=== PATIENT | male | born 1965 | race Caucasian/White ===

== ENCOUNTER 2017-12-29 18:06 | Emergency (ER) | payer MEDICARE, OTHER ==
[~2017-12-29] VITALS: Ht 172.7 cm; Wt 77.1 kg
[~2017-12-29 18:06] MED LIST: LEVAQUIN500 MG PO; LORTAB 7.5-5001 EACH PO; PLAVIX75 MG PO; PRILOSEC20 MG
--- OUTSIDE RECORDS SUMMARY | 2017-12-29 18:09 | XMS REPORT ---
Author Author [facility] Address Unknown Phone Unavailable Care Team Providers Care Institutional Cook Name Role Phone Unavailable Unavailable Problems This patient has no known problems. Allergies, Adverse Reactions, Alerts This patient has no known allergies or adverse reactions. Medications This patient has no known medications. Encounters Start Date/Time End Date/Time Encounter Type Admission Type Attending [facility] Facility Care Department Encounter ID [id number] 00:00:00 2017-06-19 00:00:00 Outpatient [facility] [id number]
[2017-12-29 19:47] VITALS: BP 138/78
== END 2017-12-29 19:48 | disposition home or self-care (01) ==
LOC: ER 18:06
DX: L04.0 Acute lymphadenitis of face, head and neck (principal); H92.02 Otalgia, left ear
CPT/HCPCS: 99282

== ENCOUNTER 2021-05-14 12:05 | Emergency (ER) | payer OTHER ==
[~2021-05-14] VITALS: Ht 172.7 cm; Wt 77.1 kg
[2021-05-14] MEDS ORDERED: ONDANSETRON HCL INJ 2MG/ML 2ML 2 MG/ML VIAL IV STA (12:21)
[2021-05-14] MEDS ORDERED: SODIUM CHLORIDE 0.9% 1000ML 1,000 ML IV STA (12:21)
[2021-05-14 12:51] LABS: BASOPHILS % 0.5 % (0.0-1.0); EOSINOPHILS # (AUTO) 0.2 (0.0-0.4); EOSINOPHILS % 4.4 % (0.0-6.0); HEMATOCRIT 42.5 % (38.2-49.6); HEMOGLOBIN 13.3 g/dL (14.0-18.0); LYMPHOCYTES # (AUTO) 1.7 (1.0-3.2); MEAN CORPUSCULAR HEMOGLOBIN 31.2 pg (28-32); MEAN CORPUSCULAR HGB CONC 31.3 g/dL (31-35); MEAN CORPUSCULAR VOLUME 99.8 fL (81-99); MONOCYTES # (AUTO) 0.5 (0.2-0.8); MONOCYTES % 9.8 % (4.4-11.3); NEUTROPHILS % 54.9 % (38.7-80.0); PLATELET COUNT 237 x10e3/uL (140-360); RED BLOOD COUNT 4.26 x10e6/uL (4.3-5.7); RED CELL DISTRIBUTION WIDTH 12.5 % (11.7-14.4)
[2021-05-14 13:09] LABS: INR 0.88; PROTHROMBIN TIME 12.1 seconds (11.9-14.5)
[2021-05-14 13:10] LABS: PARTIAL THROMBOPLASTIN TIME 31.1 seconds (23.8-35.5)
[2021-05-14 13:18] LABS: ALBUMIN 3.7 g/dL (3.5-5.0); ALBUMIN/GLOBULIN RATIO 1.1 (0.8-2.0); ANION GAP 14.7 mmol/L (8-16); CALCIUM 8.6 mg/dL (8.4-10.2); CLARITY,URINE CLEAR (CLEAR); COLOR,URINE YELLOW (YELLOW); CREATININE, SERUM 0.82 mg/dL (0.72-1.25); LEUKOCYTE ESTERASE ,URINE NEGATIVE (NEGATIVE); MAGNESIUM 1.8 MG/DL (1.3-2.1); NITRITE,URINE NEGATIVE (NEGATIVE); POTASSIUM 3.7 mmol/L (3.5-5.1); PROTEIN,URINE DIPSTICK NEGATIVE (NEGATIVE)
[2021-05-14 13:19] LABS: BACTERIA,URINE FEW /HPF; CALCIUM OXALATE CRYSTALS,UR MODERATE (FEW); EPITHELIAL CELLS,URINE FEW /LPF; KETONES,URINE NEGATIVE (NEGATIVE); RBC,URINE 0-5 /HPF (0-5); URINE UROBILINOGEN 0.2 mg/dL (0.2 - 1); WBC,URINE (MAN) 0-5 /HPF (0-5)
[2021-05-14] MEDS ORDERED: MECLIZINE HCL12.5 MG PO (14:20)
[2021-05-14] MEDS ORDERED: ONDANSETRON ODT8 MG PO (14:21)
[2021-05-14 14:47] LABS: AMPHETAMINES SCREEN,URINE NEGATIVE (NEGATIVE); BENZODIAZEPINES SCREEN,URINE NEGATIVE (NEGATIVE); PHENCYCLIDINE SCREEN,URINE NEGATIVE (NEGATIVE)
== END 2021-05-14 15:35 | disposition home or self-care (01) ==
LOC: ER 12:18
DX: U07.1 COVID-19 (principal); Z91.81 History of falling; Z88.0 Allergy status to penicillin; I25.2 Old myocardial infarction; Z86.73 Personal history of transient ischemic attack (TIA), and cerebral infarction without residual deficits; J01.90 Acute sinusitis, unspecified
CPT/HCPCS: 36415; 70450; 71045; 72125; 80053; 80307; 81001; 83735; 83880; 85025; 85610; 85730; 93005; 99284; J2405; J7030; U0002